=== PATIENT | male | born 1995 | race Caucasian/White ===

== ENCOUNTER 2018-12-03 13:15 | Emergency (ER) | payer SELFPAY ==
[~2018-12-03] VITALS: Ht 165.1 cm; Wt 95.4 kg
[2018-12-03 13:18] VITALS: BP 136/70; PULSE 79; RESP 20; Ht 165.1 cm; Wt 95.4 kg
[2018-12-03] MEDS ORDERED: KETOROLAC 30 MG INJ IM STA (14:05)
[2018-12-03] MEDS ORDERED: IBUP-1542 PO (14:57)
[2018-12-03] MEDS ORDERED: BACL10TA PO (14:58)
--- NOTE | 2018-12-03 15:02 | ERD ---
ER Documentation Chief Complaint Chief Complaint headache x 3 days HPI Patient is a 23-year-old male, presents the ER for concerns of a headache for the last 3 days. Patient states the pain is all throughout his head. Patient denies any associated nausea, vomiting, photophobia, phonophobia, acute confusion, excessive sleepiness, neck pain, neck stiffness, fevers or chills. Patient reports taking Tylenol with minimal alleviation of pain. Patient denies any chest pain, shortness of breath or LOC. 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 ROS All systems reviewed and are negative except as per history of present illness. Medications Home Meds Active Scripts Baclofen* (Baclofen*) 10 Mg Tablet, 10 MG PO Q8, #15 TAB Prov:EWA PAGE PA-C 12/03/18 Ibuprofen* (Motrin*) 600 Mg Tab, 600 MG PO Q6, #30 TAB Prov:EWA PAGE PA-C 12/03/18 Allergies Allergies: Coded Allergies: No Known Allergy (Unverified , 12/03/18) PMhx/Soc Medical and Surgical Hx: pt denies Medical Hx, pt denies Surgical Hx Hx Alcohol Use: No Hx Substance Use: No Hx Tobacco Use: Yes Smoking Status: Current every day smoker FmHx Family History: No diabetes Physical Exam Vitals Vital Signs Date Temp Pulse Resp B/P (MAP) Pulse Ox O2 O2 Flow FiO2 Time Delivery Rate 12/03/18 98.0 79 20 136/70 99 13:18 (92) Physical Exam GENERAL: Well-developed, well-nourished male. Appears in no acute distress. speaking in full sentences. HEAD: Normocephalic, atraumatic. EYES: Pupils are equally reactive bilaterally. EOMs grossly intact. No c onjunctival erythema. ENT: Moist mucous membranes. No uvula deviation. No kissing tonsils. NECK: Supple. No meningismus. Normal range of motion of the neck. Tender to palpation of bilateral trapezius muscles. Positive spasms noted. LUNG: Clear to auscultation bilaterally. No rhonchi, wheezing, rales or coarse breath sounds. HEART: Regular rate and rhythm. No murmurs, rubs or gallops. EXTREMITIES: Equal pulses bilaterally. No peripheral clubbing, cyanosis or edema. No unilateral leg swelling. NEUROLOGIC: Alert and oriented x3, cooperative. Mood and affect appropriate to situation. Cranial nerves II through XII are grossly intact. Normal speech. Motor exam: 5/5 strength in upper and lower extremities. Sensory exam: Sensation intact to light touch on all four extremities. Cerebellar function exam: Rapid alternating movements intact. No dysmetria on [id number] and [id number]-[id number] t est. Steady gait. No pronator drift. SKIN: Normal color. Warm and dry. No rashes or lesions. Results 24 hrs Current Medications Medications Dose Sig/Mauro Start Time Status Last (Trade) Ordered Route PRN Stop Time Admin Dose Reason Admin Ketorolac 30 mg ONCE STAT 12/03/18 DC 12/03/18 Tromethamine IM 14:05 14:12 (Toradol) 12/03/18 14:06 Procedures/MDM MEDICAL DECISION MAKING: This is a 23-year-old male presents the ER for concerns of a headache and trapezius muscle pain x3 days vital signs were reviewed. Patient was afebrile. Patient is not hypoxic. Patient denied any fevers, neck stiffness, jaw claudication, visual changes or LOC. Patient denied worse headache of life. Full neurological exam was normal. Patient was given Toradol for pain. Patient was noted to have trapezius muscle spasms which is likely contributing to his pain. Low suspicion for intracranial hemorrhage, meningitis, encephalitis, CO poisoning, temporal arteritis, benign intracranial hypertension, intracranial mass, glaucoma, preeclampsia, sinusitis, CVA, TIA, cluster headache. Patient was nontoxic, [id number] prior to discharge. PRESCRIPTIONS: Baclofen, ibuprofen Patient advised not to take back pain when driving or operating any machinery. DISCHARGE: At this time, patient is stable for discharge and outpatient management. I have encouraged the patient to hydrate well. I have instructed the patient to follow- up with his/her primary care physician in 1-2 days. If symptoms persist, patient may need to see a specialist for further examinations and testing. I have instr ucted the patient to promptly return to the ER at any time for any new or worsening symptoms including increased increased pain, fever, nausea, vomiting, numbness, neck stiffness, visual changes, weakness or LOC. The patient and/or family expressed understanding of and agreement with this plan. All questions were answered. Home care instructions were provided. Disclaimer: Inadvertent spelling and grammatical errors are likely due to EHR/dictation software use and do not reflect on the overall quality of patient care. Also, please note that the electronic time recorded on this note does not necessarily reflect the actual time of the patient encounter. Departure Diagnosis: Primary Impression: Muscle spasms of neck Additional Impression: Headache Headache type: unspecified Headache chronicity pattern: unspecified pattern Intractability: not intractable Qualified Codes: R51 - Headache Condition: Fair Patient Instructions: Self-Care for Headaches Additional Instructions: Call your primary care doctor TOMORROW for an appointment during the next 1-2 days.See the doctor sooner or return here if your condition worsens before your appointment time. EWA PAGE PA-C Dec 03, 2018 15:02
== END 2018-12-03 15:07 | disposition home or self-care (01) ==
LOC: FTE 13:15
DX: M79.12 Myalgia of auxiliary muscles, head and neck (principal); R40.2142 Coma scale, eyes open, spontaneous, at arrival to emergency department; R40.2252 Coma scale, best verbal response, oriented, at arrival to emergency department; R40.2362 Coma scale, best motor response, obeys commands, at arrival to emergency department; F17.210 Nicotine dependence, cigarettes, uncomplicated
CPT/HCPCS: 96372; 99284; J1885